=== PATIENT | male | born 1995 | race Caucasian/White ===

== ENCOUNTER 2017-02-01 09:13 | Emergency (ER) | payer SELFPAY ==
[2017-02-01 09:17] VITALS: TEMP 97.5
[2017-02-01] MEDS ORDERED: diphenhydrAMINE 50 MG/ML 1 ML VIAL IVP STA (09:31)
[2017-02-01] MEDS ORDERED: ONDANSETRON 4 MG/2 ML VIAL IVP STA (09:31)
[2017-02-01] MEDS ORDERED: SODIUM CHLORIDE 0.9% 500 ML IV ONE (09:31)
[2017-02-01] MEDS ORDERED: KETOROLAC 30 MG/ML 1 ML VIAL IVP STA (09:31)
--- NOTE | 2017-02-01 09:33 | ED ---
Headache HPI - General Chief Complaint: Headache Stated Complaint: migraine Time Seen by Provider: 02/01/17 09:24 Source: patient, RN notes reviewed Mode of arrival: ambulatory Limitations: no limitations - History of Present Illness Initial Comments: 21-year-old male presents emergency Department with chief complaint of headache. Patient has a long-standing history of migraine headaches. Patient states that he does occasionally have come emergency department for his headaches. Patient states he feels is typical headache on the right side. Patient states she's had headaches or 3-4 years and his multiple medications. Patient states that this started over the last several into today. Patient states feels nauseated no vomiting. Does have photophobia. Denies any focal weakness, dizziness, blurred vision, sore throat, fever, chills, neck pain. Denies any chest pain or shortness breath. Denies any other complaints at this time - Related Data Home Medications Medication Instructions Recorded Confirmed Meloxicam [Mobic] 7.5 mg PO DAILY PRN 08/01/15 06/05/16 Prochlorperazine [Compazine] 10 mg PO Q12H PRN 08/01/15 06/05/16 Dihydroergotamine 1 spray EA NOSTRIL QID PRN 08/02/15 06/05/16 Acetaminophen Tab [Tylenol Tab] 650 mg PO Q4H PRN 06/05/16 06/05/16 Allergies Allergy/AdvReac Type Severity Reaction Status Date / Time acetaminophen [From [facility]] Allergy Rash/Hives Verified 06/05/16 10:17 Review of Systems ROS Statement: Those systems with pertinent positive or pertinent negative responses have been documented in the HPI. ROS Other: All systems not noted in ROS Statement are negative. Past Medical History Additional Past Medical History / Comment(s): migraine headaches History of Any Multi-Drug Resistant Organisms: None Reported Past Surgical History: No Surgical Hx Reported Additional Past Anesthesia/Blood Transfusion Reaction / Comment(s): [employer] Past Psychological History: No Psychological Hx Reported Smoking Status: Current every day smoker Past Alcohol Use History: Occasional Past Drug Use History: None Reported - Past Family History Mother Family Medical History: No Reported History Father Family Medical History: No Reported History General Exam Limitations: no limitations General appearance: alert, in no apparent distress Head exam: Present: atraumatic, normocephalic, normal inspection Eye exam: Present: normal appearance, PERRL, EOMI. Absent: scleral icterus, conjunctival injection, periorbital swelling ENT exam: Present: normal exam, normal oropharynx, mucous membranes moist, TM's normal bilaterally, normal external ear exam Neck exam: Present: normal inspection, full ROM. Absent: tenderness, meningismus, lymphadenopathy Respiratory exam: Present: normal lung sounds bilaterally. Absent: respiratory distress, wheezes, rales, rhonchi, stridor Cardiovascular Exam: Present: regular rate, normal rhythm, normal heart sounds. Absent: systolic murmur, diastolic murmur, rubs, gallop, clicks GI/Abdominal exam: Present: soft, normal bowel sounds. Absent: distended, tenderness, guarding, rebound, rigid Neurological exam: Present: alert, oriented X3, CN II-XII intact, reflexes normal, other (Finger to nose intact bilaterally without overshooting.). Absent : motor sensory deficit Skin exam: Present: warm, dry, intact, normal color. Absent: rash Course Vital Signs 02/01/17 09:15 Temperature 97.5 F L Pulse Rate 60 Respiratory 20 Rate Blood Pressure 130/65 O2 Sat by Pulse 99 Oximetry - Reevaluation(s) Reevaluation #1: 02/01/17 10:43 Patient was reevaluated this time. Patient states his headache is starting to resolve. Patient states that he is ready to go home. I did offer further medications other states he is okay. Patient be discharged patient has no neurological deficits. Medical Decision Making - Medical Decision Making 21-year-old male present emergency department migraine headache. Patient's chronic migraine headaches. Patient states his feeling better at this time. Patient be discharged. Disposition Clinical Impression: Migraine Disposition: HOME SELF-CARE Condition: Stable Instructions: Acute Headache (ED) Additional Instructions: Please return to the Emergency Department if symptoms worsen or any other concerns. Time of Disposition: 10:44
[2017-02-01 10:56] VITALS: BP 127/86; PULSE 61; RESP 18
== END 2017-02-01 10:56 | disposition home or self-care (01) ==
LOC: EC 09:13
DX: G43.909 Migraine, unspecified, not intractable, without status migrainosus (principal); F17.200 Nicotine dependence, unspecified, uncomplicated; Z79.1 Long term (current) use of non-steroidal anti-inflammatories (NSAID); Z88.6 Allergy status to analgesic agent
CPT/HCPCS: 99283; 96374; 96375 ×2; 96361; J1200; J2405; J1885

== ENCOUNTER 2019-02-01 20:52 | Emergency (ER) | payer SELFPAY ==
[2019-02-01 21:14] VITALS: TEMP 99.7
[2019-02-01] MEDS ORDERED: Acetaminophen-Codeine 300-30mg TAB PO STA (21:43)
[2019-02-01] MEDS ORDERED: DEXAMETHASONE 4 MG TAB PO STA (21:43)
[2019-02-01] MEDS ORDERED: KETOROLAC 60 MG/2 ML VIAL IM STA (21:43)
[2019-02-01] MEDS ORDERED: PROCHLORPERAZINE 10 MG TAB PO STA (21:43)
[2019-02-01] MEDS ORDERED: ACETAMINOPHEN TAB 325 MG TAB PO STA (21:43)
--- NOTE | 2019-02-01 21:45 | ED ---
Headache HPI - General Chief Complaint: Headache Stated Complaint: Migraine Time Seen by Provider: 02/01/19 21:26 Source: RN notes reviewed, old records reviewed Mode of arrival: ambulatory Limitations: no limitations - History of Present Illness Initial Comments: This is a 23-year-old male the ER for evaluation. They presents to the for evaluation of positive sick contacts including sounds with influenza. Not feeling well diffuse body aches and headache. Patient does have history of migraine headaches are usually triggered by some sort of infection. Denies any other complaints. Mild nausea no vomiting. He does have fever and chills MD Complaint: headache, "migraine", other (Patient also complaining of influenza-like symptoms and body aches) -: days(s) (3) Onset Description: gradual Location: diffuse Severity: moderate Severity scale (1-10): 3 Quality: aching Consistency: constant Improves With: medication (No longer on his home migraine medication) Worsens With: none Associated Symptoms: fever Other Symptoms: other (Bodyaches) Treatments Prior to Arrival: Acetaminophen, Ibuprofen - Related Data Home Medications Medication Instructions Recorded Confirmed Meloxicam [Mobic] 7.5 mg PO DAILY PRN 08/01/15 06/05/16 Prochlorperazine [Compazine] 10 mg PO Q12H PRN 08/01/15 06/05/16 Dihydroergotamine 1 spray EA NOSTRIL QID PRN 08/02/15 06/05/16 Acetaminophen Tab [Tylenol Tab] 650 mg PO Q4H PRN 06/05/16 06/05/16 Allergies Allergy/AdvReac Type Severity Reaction Status Date / Time acetaminophen [From [facility]] Allergy Rash/Hives Verified 02/01/19 21:13 Review of Systems ROS Statement: Those systems with pertinent positive or pertinent negative responses have been documented in the HPI. ROS Other: All systems not noted in ROS Statement are negative. 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 Migraine. Migraine headache is improved currently. Fevers improved. Patient can be discharged home Disposition Clinical Impression: Headache, Influenza A Disposition: HOME SELF-CARE Condition: Good Instructions (If sedation given, give patient instructions): Influenza (ED), Acute Headache (ED) Is patient prescribed a controlled substance at d/c from ED?: No Referrals: None,Stated [Primary Care Provider] - 1-2 days
[2019-02-01] MEDS ORDERED: diphenhydrAMINE ELIXIR 25 MG/10 ML CUP PO STA (21:58)
[2019-02-01 23:28] VITALS: BP 128/74; PULSE 76; RESP 16
== END 2019-02-01 23:15 | disposition home or self-care (01) ==
LOC: EC 20:52
DX: J10.1 Influenza due to other identified influenza virus with other respiratory manifestations (principal); G43.909 Migraine, unspecified, not intractable, without status migrainosus; Z88.6 Allergy status to analgesic agent; Z87.891 Personal history of nicotine dependence
CPT/HCPCS: 99283; 96372; S0183; J8540; J1885

== ENCOUNTER 2019-04-20 17:10 | Emergency (ER) | payer OTHER ==
[2019-04-20 17:58] VITALS: TEMP 98.8
--- NOTE | 2019-04-20 18:29 | XR ---
EXAMINATION: XR chest 3V DATE AND TIME: 04/20/2019 6:18 PM CLINICAL INDICATION: PHH; Pain TECHNIQUE: Departmental protocol COMPARISON: None FINDINGS: The lungs are clear. The pleural spaces are negative. The cardiac silhouette is not enlarged. The remainder of the mediastinal silhouette is unremarkable. The skeletal structures and soft tissues are negative for acute findings. IMPRESSION: NO ACUTE PROCESS.
[2019-04-20] MEDS ORDERED: methylPREDNISolone SOD SUCCI 125 MG/2 ML VIAL IV STA (19:14)
[2019-04-20] MEDS ORDERED: IPRATROPIUM-ALBUTEROL 3 ML NEB INHALATION STA (19:14)
[2019-04-20] MEDS ORDERED: KETOROLAC 30 MG/ML 1 ML VIAL IVP STA (19:51)
[2019-04-20 19:59] LABS: Basophils # (A) 0.1 k/uL (0-0.2); Basophils % (A) 1 %; Eosinophils # (A) 0.6 k/uL (0-0.7); Eosinophils % (A) 4 %; HCT 44.2 % (39.0-53.0); HGB 14.8 gm/dL (13.0-17.5); Lymphocytes # (A) 1.8 k/uL (1.0-4.8); Lymphocytes % (A) 11 %; MCHC 33.5 g/dL (31.0-37.0); MCV 89.5 fL (80.0-100.0); Mean Platelet Volume 6.6; Monocytes # (A) 0.7 k/uL (0-1.0); Monocytes % (A) 4 %; Neutrophils # (A) 12.5 k/uL (1.3-7.7); Neutrophils % (A) 79 %; Platelet Count 252 k/uL (150-450); RBC 4.94 m/uL (4.30-5.90); RDW 12.8 % (11.5-15.5); WBC 15.9 k/uL (3.8-10.6)
[2019-04-20 20:05] LABS: ALT 29 U/L (21-72); AST 28 U/L (17-59); Albumin 4.5 g/dL (3.5-5.0); Alkaline Phosphatase 60 U/L (38-126); Anion Gap 7 mmol/L; Blood Urea Nitrogen 16 mg/dL (9-20); Calcium 10.2 mg/dL (8.4-10.2); Carbon Dioxide 30 mmol/L (22-30); Chloride 101 mmol/L (98-107); Glucose 95 mg/dL (74-99); Potassium 4.1 mmol/L (3.5-5.1); Sodium 138 mmol/L (137-145); Total Bilirubin 0.8 mg/dL (0.2-1.3); Total Protein 7.3 g/dL (6.3-8.2)
--- NOTE | 2019-04-20 20:18 | ED ---
URI HPI - General Chief Complaint: Upper Respiratory Infection Stated Complaint: Cough/sob Time Seen by Provider: 04/20/19 18:06 Source: patient Mode of arrival: ambulatory Limitations: no limitations - History of Present Illness Initial Comments: 23-year-old male presenting today for chief complaint of cough congestion and chest pain. Patient states that he has had cough congestion as well as a sore throat for the past 2-3 days. He states at this time he also had the sensation that his chest was heavy. He denies any sharp or crushing pain he denies any back pain. Patient has a history of diabetes or hypertension. Patient denies any premature coronary artery disease history with his family. Patient denies any past medical history of congenital abnormalities. Patient states that there was no pattern with exertion. Patient denies any lower extremity swelling. Patient states he has coughed up something black he denies this being blood he states he does occasionally smoke. Pt was concerned of infection and presented to the ER. Pt states he still has the heavy, chest congestion sensation, sore throat and cough. He denies fever or nightsweats. He states he has history of chronic migraines and has had one today, denies photpophobia, neck stiffness, or vomiting. Patient denies recent surgery, recent fracture recent immobilization history of DVT or pulmonary embolism, history of coagulation disorders, recent travel, leg swelling. Remainign ROS (-). Upon arrival pt appears well, no signs of acute distress. - Related Data Home Medications Medication Instructions Recorded Confirmed Ibuprofen [Motrin Ib] 400 mg PO Q8H 02/01/19 02/01/19 Previous Rx's Medication Instructions Recorded Azithromycin [Zithromax Z-pack] 0 mg PO DIRECTED #6 tab 04/20/19 Allergies Allergy/AdvReac Type Severity Reaction Status Date / Time [facility] Allergy Rash/Hives Verified 02/01/19 22:25 Review of Systems ROS Statement: Those systems with pertinent positive or pertinent negative responses have been documented in the HPI. ROS Other: All systems not noted in ROS Statement are negative. 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 Eye: +3 mm pupils are equal, round and reactive to light, extra-ocular movements are intact. No nystagmus. There is normal conjunctiva bilaterally. No signs of icterus. No photophobia Ears, nose, mouth and throat: There are moist mucous membranes and no oral lesions. Oropharynx was not erythematous there is no tonsillar enlargement exudates or lesions. Uvula midline. Tympanic membranes are not erythematous or is no effusions bulging or retraction. No tenderness to palpation of the mastoid. No anterior cervical lymphadenopathy. Rhinorrhea, clear and bilateral nares. No tripoding, no drooling. Neck: The neck is supple, there is no tenderness or JVD. No nuchal rigidity negative Brudzinski and Kernig Cardiovascular: There is a regular rate and rhythm. No murmur, rub or gallop is appreciated. Respiratory: Lungs are clear to auscultation, respirations are non-labored, breath sounds are equal. No wheezes, stridor, rales, or rhonchi. No retractions or abdominal breathing. Gastrointestinal: Soft, non-distended, non-tender abdomen without masses or organomegaly noted. There is no rebound or guarding present. Bowel sounds are unremarkable. Musculoskeletal: Normal ROM, no tenderness. Strength 5/5. Sensation intact. Radial pulses equal bilaterally 2+. Neurological: A&O x 3. CN II-XII intact, There are no obvious motor or sensory deficits. Coordination appears grossly intact. Speech appears normal, no muffling. Skin: Skin is warm and dry and no rashes or lesions are noted. No extremity edema Psychiatric: Cooperative Limitations: no limitations Course Vital Signs 04/20/19 04/20/19 04/20/19 17:56 19:57 20:03 Temperature 98.8 F Pulse Rate 93 92 94 Respiratory 18 Rate Blood Pressure 129/65 O2 Sat by Pulse 98 Oximetry 04/20/19 21:24 Temperature Pulse Rate 92 Respiratory 16 Rate Blood Pressure 125/67 O2 Sat by Pulse 98 Oximetry Medical Decision Making - Medical Decision Making Appearing 23-year-old male presenting today for chief complaint of upper respiratory symptoms/sensastion of chest congestion. Pt EKG revealed no ischemic findings, reviewed by attending Dr. Ba. Pt CXR revealed no PNA. Upon lung aus cultation lungs are clear. The sheet given a DuoNeb treatment. Patient complained of sore throat. Mildly erythematous oropharynx on examination. No tonsillar exudates. Strep pharyngitis negative. Patient does have postnasal drip. No signs of peritonsillar abscess, or meningeal irritation signs. Dr. pressley revealed mild leukocytosis. Troponin (-). D-dimer WNL. At this time feel patient is respiratory symptoms however given the leukocytosis concern for possible bacterial infection. Patient be treated with azithromycin for possible developing pneumonia. Patient is instructed to follow-up outpatient return for any worsening symptoms. Patient was agreeable care plan as well as discharge. I discussed the case with attending Dr. Ba was agreeable discharge and care plan at this time. - Lab Data Result diagrams: 04/20/19 19:45 04/20/19 19:45 Lab Results 04/20/19 04/20/19 04/20/19 Range/Units 19:45 19:45 19:45 WBC 15.9 H (3.8-10.6) k/uL RBC 4.94 (4.30-5.90) m/uL Hgb 14.8 (13.0-17.5) gm/dL Hct 44.2 (39.0-53.0) % MCV 89.5 (80.0-100.0) fL MCH 30.0 (25.0-35.0) pg MCHC 33.5 (31.0-37.0) g/dL RDW 12.8 (11.5-15.5) % Plt Count 252 (150-450) k/uL Neutrophils % 79 % Lymphocytes % 11 % Monocytes % 4 % Eosinophils % 4 % Basophils % 1 % Neutrophils # 12.5 H (1.3-7.7) k/uL Lymphocytes # 1.8 (1.0-4.8) k/uL Monocytes # 0.7 (0-1.0) k/uL Eosinophils # 0.6 (0-0.7) k/uL Basophils # 0.1 (0-0.2) k/uL D-Dimer (<0.60) mg/L FEU Sodium 138 (137-145) mmol/L Potassium 4.1 (3.5-5.1) mmol/L Chloride 101 (98-107) mmol/L Carbon Dioxide 30 (22-30) mmol/L Anion Gap 7 mmol/L BUN 16 (9-20) mg/dL Creatinine 0.95 (0.66-1.25) mg/dL Est GFR (CKD-EPI)AfAm >90 (>60 ml/min/1.73 sqM) Est GFR (CKD-EPI)NonAf >90 (>60 ml/min/1.73 sqM) Glucose 95 (74-99) mg/dL Calcium 10.2 (8.4-10.2) mg/dL Total Bilirubin 0.8 (0.2-1.3) mg/dL AST 28 (17-59) U/L ALT 29 (21-72) U/L Alkaline Phosphatase 60 (38-126) U/L Troponin I <0.012 (0.000-0.034) ng/mL Total Protein 7.3 (6.3-8.2) g/dL Albumin 4.5 (3.5-5.0) g/dL Group A Strep Rapid (Negative) 04/20/19 04/20/19 Range/Units 19:45 21:10 WBC (3.8-10.6) k/uL RBC (4.30-5.90) m/uL Hgb (13.0-17.5) gm/dL Hct (39.0-53.0) % MCV (80.0-100.0) fL MCH (25.0-35.0) pg MCHC (31.0-37.0) g/dL RDW (11.5-15.5) % Plt Count (150-450) k/uL Neutrophils % % Lymphocytes % % Monocytes % % Eosinophils % % Basophils % % Neutrophils # (1.3-7.7) k/uL Lymphocytes # (1.0-4.8) k/uL Monocytes # (0-1.0) k/uL Eosinophils # (0-0.7) k/uL Basophils # (0-0.2) k/uL D-Dimer 0.35 (<0.60) mg/L FEU Sodium (137-145) mmol/L Potassium (3.5-5.1) mmol/L Chloride (98-107) mmol/L Carbon Dioxide (22-30) mmol/L Anion Gap mmol/L BUN (9-20) mg/dL Creatinine (0.66-1.25) mg/dL Est GFR (CKD-EPI)AfAm (>60 ml/min/1.73 sqM) Est GFR (CKD-EPI)NonAf (>60 ml/min/1.73 sqM) Glucose (74-99) mg/dL Calcium (8.4-10.2) mg/dL Total Bilirubin (0.2-1.3) mg/dL AST (17-59) U/L ALT (21-72) U/L Alkaline Phosphatase (38-126) U/L Troponin I (0.000-0.034) ng/mL Total Protein (6.3-8.2) g/dL Albumin (3.5-5.0) g/dL Group A Strep Rapid Negative (Negative) - EKG Data EKG Comments: Ventricular rate 86 bpm, [place] interval 132 ms, QRS duration 102 ms, QT/QTC 342/409 ms. Normal sinus rhythm with sinus arrhythmia. Incomplete right bundle branch block. No ST elevation or depression. EKG interpreted by myself as well as my attending provider Dr. Ba Disposition Clinical Impression: Upper respiratory infection, Cough, Leukocytosis Disposition: HOME SELF-CARE Condition: Good Instructions (If sedation given, give patient instructions): Upper Respiratory Infection (ED) Additional Instructions: Please use medication as discussed. Please follow-up with family doctor in the next 2 days. Please return to emergency room if the symptoms increase or worsen or for any other concerns. Prescriptions: Azithromycin [Zithromax Z-pack] 0 mg PO DIRECTED #6 tab Is patient prescribed a controlled substance at d/c from ED?: No Referrals: None,Stated [Primary Care Provider] - 1-[address] [facility] [NON-[facility]FF] - 1-2 days Time of Disposition: 21:07
[2019-04-20] MEDS ORDERED: cefTRIAXone IN SWFI 1,000 MG/10 ML SYRINGE IVP STA (21:05)
[2019-04-20 21:25] VITALS: BP 125/67; PULSE 92; RESP 16
== END 2019-04-20 21:25 | disposition home or self-care (01) ==
LOC: EC 17:10
DX: J06.9 Acute upper respiratory infection, unspecified (principal); D72.829 Elevated white blood cell count, unspecified; I45.10 Unspecified right bundle-branch block; Z87.891 Personal history of nicotine dependence; Z88.6 Allergy status to analgesic agent; Z79.1 Long term (current) use of non-steroidal anti-inflammatories (NSAID); Z86.69 Personal history of other diseases of the nervous system and sense organs
CPT/HCPCS: 36415; 94640; 93005; 85379; 80053; 84484; 85025; 87081; 87430; 71046; 99284; 96374; 96375 ×2; J2930; J0696; J1885

== ENCOUNTER 2021-08-01 12:48 | Emergency (ER) | payer OTHER ==
[2021-08-01 12:53] VITALS: BP 108/56; PULSE 106; RESP 18; TEMP 99
[2021-08-01] MEDS ORDERED: SODIUM CHLORIDE 0.9% 1,000 ML IV STA (13:04)
[2021-08-01] MEDS ORDERED: KETOROLAC 15 MG/ML 1 ML VIAL IVP STA (13:05)
[2021-08-01] MEDS ORDERED: diphenhydrAMINE 50 MG/ML 1 ML VIAL IVP STA (13:05)
[2021-08-01] MEDS ORDERED: METOCLOPRAMIDE 5 MG/ML 2 ML VIAL IVP STA (13:05)
--- NOTE | 2021-08-01 14:22 | ED ---
General Adult HPI - General Chief complaint: Headache Stated complaint: Nausea/Vomiting/Back Pain Time Seen by Provider: 08/01/21 12:55 Source: patient, RN notes reviewed Mode of arrival: wheelchair Limitations: no limitations - History of Present Illness Initial comments: 25-year-old male presents to the emergency room for a chief complaint of headache. Patient has a headache on the left side of his head. States it has been there since yesterday afternoon. States it has gradually worsened throughout the evening and now into this morning. Patient states he has a history of migraines and this feels similar. Patient's also has been as having nausea vomiting diarrhea for the past few days. Patient denies fevers or chills. Denies abdominal pain. Pt denies CP, SOB, abdominal pain, or visual changes - Related Data Home Medications Medication Instructions Recorded Confirmed Ibuprofen [Motrin Ib] 400 mg PO Q8H 02/01/19 02/01/19 Previous Rx's Medication Instructions Recorded Azithromycin [Zithromax Z-pack (6 0 mg PO DIRECTED #6 tab 04/20/19 tabs)] Ondansetron [Zofran ODT] 4 mg PO Q8HR PRN #15 tab 08/01/21 Allergies Allergy/AdvReac Type Severity Reaction Status Date / Time [facility]amin[facility] Allergy Rash/Hives Verified 08/01/21 12:50 Review of Systems ROS Statement: Those systems with pertinent positive or pertinent negative responses have been documented in the HPI. ROS Other: All systems not noted in ROS Statement are negative. 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 Absent: scleral icterus, conjunctival injection ENT exam: Present: normal exam, mucous membranes moist Neck exam: Present: normal inspection, full ROM. Absent: tenderness Respiratory exam: Present: normal lung sounds bilaterally. Absent: respiratory distress, wheezes Cardiovascular Exam: Present: regular rate, normal rhythm, normal heart sounds GI/Abdominal exam: Present: soft, normal bowel sounds. Absent: distended, tenderness Neurological exam: Present: alert Psychiatric exam: Present: normal affect, normal mood Course Vital Signs 08/01/21 12:52 Temperature 99.0 F Pulse Rate 106 H Respiratory 18 Rate Blood Pressure 108/56 O2 Sat by Pulse 94 L Oximetry Medical Decision Making - Medical Decision Making Vitals are stable. Patient well-appearing. Afebrile. Physical exam is u nremarkable. No abdominal tenderness. CBC does show some mild leukocytosis which is likely reactive for vomiting. CMP unremarkable. Urinalysis unremarkable. Patient was given fluids a migraine cocktail. Had significant improvement in symptoms. At this time patient can be discharged home. Likely experiencing his migraine as well as gastroneuritis. He will return here for any worsening symptoms. - Lab Data Result diagrams: 08/01/21 13:42 08/01/21 13:42 Lab Results 08/01/21 08/01/21 08/01/21 Range/Units 13:42 13:42 13:42 WBC 13.3 H (3.8-10.6) k/uL RBC 4.77 (4.30-5.90) m/uL Hgb 15.3 (13.0-17.5) gm/dL Hct 43.1 (39.0-53.0) % MCV 90.3 (80.0-100.0) fL MCH 32.1 (25.0-35.0) pg MCHC 35.6 (31.0-37.0) g/dL RDW 12.0 (11.5-15.5) % Plt Count 247 (150-450) k/uL MPV 7.3 Neutrophils % 87 % Lymphocytes % 5 % Monocytes % 6 % Eosinophils % 1 % Basophils % 0 % Neutrophils # 11.6 H (1.3-7.7) k/uL Lymphocytes # 0.7 L (1.0-4.8) k/uL Monocytes # 0.7 (0-1.0) k/uL Eosinophils # 0.1 (0-0.7) k/uL Basophils # 0.0 (0-0.2) k/uL Sodium 138 (137-145) mmol/L Potassium 4.2 (3.5-5.1) mmol/L Chloride 100 (98-107) mmol/L Carbon Dioxide 29 (22-30) mmol/L Anion Gap 9 mmol/L BUN 15 (9-20) mg/dL Creatinine 0.97 (0.66-1.25) mg/dL Est GFR (CKD-EPI)AfAm >90 (>60 ml/min/1.73 sqM) Est GFR (CKD-EPI)NonAf >90 (>60 ml/min/1.73 sqM) Glucose 96 (74-99) mg/dL Calcium 10.2 (8.4-10.2) mg/dL Total Bilirubin 1.0 (0.2-1.3) mg/dL AST 26 (17-59) U/L ALT 22 (4-49) U/L Alkaline Phosphatase 60 (38-126) U/L Total Protein 7.3 (6.3-8.2) g/dL Albumin 4.5 (3.5-5.0) g/dL Amylase 68 (30-110) U/L Lipase 48 (23-300) U/L Urine Color Yellow Urine Appearance Clear (Clear) Urine pH 5.5 (5.0-8.0) Ur Specific [place] 1.024 (1.001-1.035) Urine Protein Negative (Negative) Urine Glucose (UA) Negative (Negative) Urine Ketones Negative (Negative) Urine Blood Negative (Negative) Urine Nitrite Negative (Negative) Urine Bilirubin Negative (Negative) Urine Urobilinogen <2.0 (<2.0) mg/dL Ur Leukocyte Esterase Negative (Negative) Disposition Clinical Impression: Nausea vomiting and diarrhea, Migraine headache Disposition: TRANSFER TO PSYCH HOSP/UNIT Condition: Good Instructions (If sedation given, give patient instructions): Acute Headache (ED) Additional Instructions: Please follow-up with your doctor in one to 2 days. Return to the emergency room for any worsening symptoms. Prescriptions: Ondansetron [Zofran ODT] 4 mg PO Q8HR PRN #15 tab PRN Reason: Nausea Is patient prescribed a controlled substance at d/c from ED?: No Referrals: Ghazal Valladares MD [STAFF PHYSICIAN] - 1-2 days Time of Disposition: 15:12
[2021-08-01 14:29] LABS: Basophils % (A) 0 %; Eosinophils # (A) 0.1 k/uL (0-0.7); Eosinophils % (A) 1 %; HCT 43.1 % (39.0-53.0); HGB 15.3 gm/dL (13.0-17.5); Lymphocytes # (A) 0.7 k/uL (1.0-4.8); Lymphocytes % (A) 5 %; MCH 32.1 pg (25.0-35.0); MCHC 35.6 g/dL (31.0-37.0); MCV 90.3 fL (80.0-100.0); Mean Platelet Volume 7.3; Monocytes # (A) 0.7 k/uL (0-1.0); Monocytes % (A) 6 %; Neutrophils # (A) 11.6 k/uL (1.3-7.7); Neutrophils % (A) 87 %; Platelet Count 247 k/uL (150-450); RBC 4.77 m/uL (4.30-5.90); WBC 13.3 k/uL (3.8-10.6)
[2021-08-01 14:33] LABS: Appearance,Urine Clear (Clear); Bilirubin,Urine Negative (Negative); Blood,Urine Negative (Negative); Color,Urine Yellow; Glucose,Urine (UA) Negative (Negative); Ketones,Urine Negative (Negative); Leukocyte Esterase,Urine Negative (Negative); Nitrite,Urine Negative (Negative); PH, Urine 5.5 (5.0-8.0); Protein,Urine Negative (Negative); Specific Gravity,Urine 1.024 (1.001-1.035); Urobilinogen,Urine <2.0 mg/dL (<2.0)
[2021-08-01 14:40] LABS: ALT 22 U/L (4-49); AST 26 U/L (17-59); African American GFR (CKD) >90 (>60 ml/min/1.73 sqM); Albumin 4.5 g/dL (3.5-5.0); Alkaline Phosphatase 60 U/L (38-126); Amylase 68 U/L (30-110); Anion Gap 9 mmol/L; Blood Urea Nitrogen 15 mg/dL (9-20); Calcium 10.2 mg/dL (8.4-10.2); Carbon Dioxide 29 mmol/L (22-30); Chloride 100 mmol/L (98-107); Glucose 96 mg/dL (74-99); Lipase 48 U/L (23-300); Non-African American GFR(CKD) >90 (>60 ml/min/1.73 sqM); Potassium 4.2 mmol/L (3.5-5.1); Sodium 138 mmol/L (137-145); Total Protein 7.3 g/dL (6.3-8.2)
== END 2021-08-01 15:36 | disposition home or self-care (01) ==
LOC: EC 12:48
DX: G43.909 Migraine, unspecified, not intractable, without status migrainosus (principal); R11.2 Nausea with vomiting, unspecified; R19.7 Diarrhea, unspecified; Z88.6 Allergy status to analgesic agent
CPT/HCPCS: 99284; 96374; 96375 ×2; 96361; 36415; 80053; 82150; 83690; 85025; 81003; J1200; J2765; J1885